=== PATIENT | female | born 1975 | race Two or more races ===

== ENCOUNTER 2018-06-23 06:37 | Day surgery (SDC) | payer OTHER ==
[2018-06-23] MEDS ORDERED: NS 1,000 ML IV ONE (06:53)
[2018-06-23] MEDS ORDERED: ONDANSETRON 4 MG/2 ML VIAL IVP ONE (07:18)
--- NOTE | 2018-06-23 07:24 | EDPHY ---
HPI/HX/ROS/PE/MDM Narrative: CHIEF COMPLAINT: Abdominal pain HISTORY OF PRESENT ILLNESS: The patient is a 42 y/o female with a history of gastric ulcers complaining of abdominal pain and nausea onset at 03:00, 4 hours ago. In the past she saw a screw machine hand and was diagnosed with a leaky gut. She was also diagnosed with a gastric ulcer which she took medication for. However, the pain today feels different. After eating dinner last night she developed chills and became nauseous. At 03:00, she developed upper abdominal pain and vomited after having a sip of water. There was a small amount of subjective blood present in this vomit. The abdominal pain has since radiated to her entire abdomen and she continues to feel nauseous. In addition to her abdominal pain, she has had orange-colored stool for the past several days. Denies history of abdominal surgeries or kidney stones. No fever, chest pain, shortness of breath, palpitations, diarrhea, urinary complaints, back pain, headache, lightheadedness. REVIEW OF SYSTEMS: Aside from elements discussed in the HPI, a comprehensive 10-point review of systems was reviewed and is negative. PAST MEDICAL HISTORY: Gastric ulcers, leaky gut SOCIAL HISTORY: Lives in [place], family at bedside, not employed VITAL SIGNS: Reviewed by me GENERAL: Appears uncomfortable, well-developed, well-nourished, in no respiratory distress. HEENT: Atraumatic. Eyes: No icterus, no injection. Mouth: moist mucous membranes. No erythema or lesions. Neck: supple with no adenopathy. LUNGS: Clear to auscultation bilaterally, no wheezes, rhonchi or rales. CARDIAC: Regular rate and rhythm, no rubs, murmurs or gallops. ABDOMEN: Generalized abdominal tenderness, soft, nondistended, no guarding or rebound, bowel sounds normal. No focal tenderness. BACK: Left flank discomfort EXTREMITIES: No trauma. No edema. Range of motion is normal throughout. NEURO: Alert and oriented, grossly nonfocal. SKIN: Warm and dry, no rash. PSYCHIATRIC: Normal mentation, no agitation. Portions of this note were transcribed by a medical office receptionist. I personally performed a history, physical exam, medical decision making, and confirmed accuracy of information the transcribed note. ED Course: The patient is a 42 y/o female with a history of gastric ulcers presenting with generalized abdominal pain and nausea onset at 03:00, 4 hours ago. On exam she has left flank discomfort and generalized abdominal tenderness without guarding , rebound or distension. Labs and abdominopelvic CT ordered; 1L IV NS, 50mcg IV Fentanyl, and 4mg IV Zofran. 0750: Patient's labs are normal besides a mildly elevated white count, CT results still pending. 0839: Spoke with Dr. Barraza, patient has an enlarged appendix indicative of acute appendicitis. 0840: Consulted with Dr. Velasco, general surgeon, who will evaluate the patient Emergency Department. 0845: Reassessed patient and discussed laboratory and imaging findings. She is comfortable with plan for admission for an appendectomy. 1gm IV Ceftriaxone, 500mg IV Flagyl, and 1mg IV Dilaudid administered prior to being transferred to the floor. Seen by Dr. Velasco in the emergency department. Taken to the operating room with plans for discharge later today from PACU. MDM: After obtaining the patient's history and performing an examination, differential diagnosis considered included but was not limited to appendicitis, cholecystitis, gastritis, pancreatitis, kidney stones, urinary tract infections and other causes. - Data Points Imaging Results: Imaging Impressions Abdomen CT 06/23/18 07:44 Impression: Acute appendicitis with appendicolith and a small amount of free fluid in the right lower quadrant of the pelvis. Findings and recommendations discussed with Emergency Department physician, Shanika Perez MD at 0840 hours, 06/23/2018. Final report concurs with initial preliminary interpretation. A test result has been communicated to a licensed care provider and documented in the [facility] Critical Result system on 06/23/2018 8:41, Message ID [id number]. Imaging: Discussed imaging studies w/ body recall instructor Radiologist, I viewed and interpreted images myself Laboratory Results: Laboratory Results 06/23/18 07:15 06/23/18 07:15 06/23/18 06/23/18 06/23/18 07:15 07:15 07:15 WBC 13.94 10^3/uL H 10^3/uL (3.80-9.50) RBC 4.42 10^6/uL 10^6/uL (4.18-5.33) Hgb 13.5 g/dL g/dL (12.6-16.3) Hct 40.1 % % (38.0-47.0) MCV 90.7 fL fL (81.5-99.8) MCH 30.5 pg pg (27.9-34.1) MCHC 33.7 g/dL g/dL (32.4-36.7) RDW 12.7 % % (11.5-15.2) Plt Count 301 10^3/uL 10^3/uL (150-400) MPV 9.7 fL fL (8.7-11.7) Neut % (Auto) 90.6 % H % (39.3-74.2) Lymph % (Auto) 5.4 % L % (15.0-45.0) Ida % (Auto) 3.2 % L % (4.5-13.0) Eos % (Auto) 0.1 % L % (0.6-7.6) Baso % (Auto) 0.3 % % (0.3-1.7) Nucleat RBC Rel Count 0.0 % % (0.0-0.2) Absolute Neuts (auto) 12.64 10^3/uL H 10^3/uL (1.70-6.50) Absolute Lymphs (auto) 0.75 10^3/uL L 10^3/uL (1.00-3.00) Absolute Monos (auto) 0.44 10^3/uL 10^3/uL (0.30-0.80) Absolute Eos (auto) 0.02 10^3/uL L 10^3/uL (0.03-0.40) Absolute Basos (auto) 0.04 10^3/uL 10^3/uL (0.02-0.10) Absolute Nucleated RBC 0.00 10^3/uL 10^3/uL (0-0.01) Immature Gran % 0.4 % % (0.0-1.1) Immature Gran # 0.05 10^3/uL 10^3/uL (0.00-0.10) Sodium 142 mEq/L mEq/L (135-145) Potassium 3.8 mEq/L mEq/L (3.3-5.0) Chloride 105 mEq/L mEq/L (97-110) Carbon Dioxide 26 mEq/l mEq/l (22-31) Anion Gap 11 mEq/L mEq/L (8-16) BUN 20 mg/dL mg/dL (7-23) Creatinine 0.7 mg/dL mg/dL (0.6-1.0) Estimated GFR > 60 Glucose 119 mg/dL H mg/dL (70-100) Calcium 9.0 mg/dL mg/dL (8.5-10.4) Total Bilirubin 0.6 mg/dL mg/dL (0.1-1.4) Conjugated Bilirubin 0.2 mg/dL mg/dL (0.0-0.5) Unconjugated Bilirubin 0.4 mg/dL mg/dL (0.0-1.1) AST 23 IU/L IU/L (14-46) ALT 24 IU/L IU/L (9-52) Alkaline Phosphatase 75 IU/L IU/L (38-126) Total Protein 7.0 g/dL g/dL (6.3-8.2) Albumin 4.0 g/dL g/dL (3.5-5.0) Lipase 85 IU/L IU/L (23-300) Beta HCG, Qual NEGATIVE Urine Color Urine Appearance Urine pH Ur Specific [place] Urine Protein Urine Ketones Urine Blood Urine Nitrate Urine Bilirubin Urine Urobilinogen Ur Leukocyte Esterase Urine RBC Urine WBC Ur Epithelial Cells Urine Mucus Urine Glucose 06/23/18 06:55 WBC RBC Hgb Hct MCV MCH MCHC RDW Plt Count MPV Neut % (Auto) Lymph % (Auto) Ida % (Auto) Eos % (Auto) Baso % (Auto) Nucleat RBC Rel Count Absolute Neuts (auto) Absolute Lymphs (auto) Absolute Monos (auto) Absolute Eos (auto) Absolute Basos (auto) Absolute Nucleated RBC Immature Gran % Immature Gran # Sodium Potassium Chloride Carbon Dioxide Anion Gap BUN Creatinine Estimated GFR Glucose Calcium Total Bilirubin Conjugated Bilirubin Unconjugated Bilirubin AST ALT Alkaline Phosphatase Total Protein Albumin Lipase Beta HCG, Qual Urine Color YELLOW Urine Appearance CLEAR Urine pH 6.0 (5.0-7.5) Ur Specific [place] 1.024 (1.002-1.030) Urine Protein NEGATIVE (NEGATIVE) Urine Ketones TRACE H (NEGATIVE) Urine Blood 2+ H (NEGATIVE) Urine Nitrate NEGATIVE (NEGATIVE) Urine Bilirubin NEGATIVE (NEGATIVE) Urine Urobilinogen NEGATIVE EU EU (0.2-1.0) Ur Leukocyte Esterase NEGATIVE (NEGATIVE) Urine RBC 1-3 /hpf /hpf (0-3) Urine WBC 1-3 /hpf /hpf (0-3) Ur Epithelial Cells TRACE /lpf /lpf (NONE-1+) Urine Mucus 1+ /lpf /lpf (NONE-1+) Urine Glucose NEGATIVE (NEGATIVE) Medications Given: Discontinued Medications Hydrocodone Bitart/Acetaminophen ([place] 5/325) 1 - 2 tab PO Q4HRS PRN PRN Reason: PACU, Pain Moderate Stop: 06/23/18 12:29 Last Admin: 06/23/18 13:24 Dose: 1 tab Bupivacaine HCl (Sensorcaine 0.5% Vial) Confirm Administered Dose 30 ml .ROUTE .STK-MED ONE Stop: 06/23/18 10:28 Last Admin: 06/23/18 11:20 Dose: 20 ml Bupivacaine HCl (Sensorcaine 0.5% Vial) Confirm Administered Dose 30 ml .ROUTE .STK-MED ONE Stop: 06/23/18 10:52 Last Admin: 06/23/18 11:52 Dose: Not Given Fentanyl (Sublimaze) 50 mcg IVP EDNOW ONE Stop: 06/23/18 07:39 Last Admin: 06/23/18 07:55 Dose: 50 mcg Hydromorphone HCl (Dilaudid) 1 mg IVP EDNOW ONE Stop: 06/23/18 09:01 Last Admin: 06/23/18 09:24 Dose: 1 mg Sodium Chloride (Ns) 1,000 mls @ 0 mls/hr IV EDNOW ONE; Wide Open PRN Reason: Protocol Stop: 06/23/18 06:54 Last Admin: 06/23/18 07:22 Dose: 1,000 mls Ceftriaxone Sodium/Dextrose (Rocephin 1 Gm (Premix)) 50 mls @ 100 mls/hr IV EDNOW ONE PRN Reason: Protocol Stop: 06/23/18 09:29 Last Admin: 06/23/18 09:26 Dose: 50 mls Metronidazole/Sodium Chloride (Flagyl 500 Mg (Premix)) 100 mls @ 100 mls/hr IV EDNOW ONE PRN Reason: Protocol Stop: 06/23/18 09:59 Last Admin: 06/23/18 10:23 Dose: 100 mls Lactated Ringer's (Lr) 1,000 mls @ 0 mls/hr IV ONCE ONE PRN Reason: As Directed Stop: 06/23/18 10:25 Last Admin: 06/23/18 10:38 Dose: 1,000 mls Midazolam HCl (Versed) 2 mg IVP ONCALL ONE Stop: 06/23/18 10:49 Last Admin: 06/23/18 11:08 Dose: 2 mg Ondansetron HCl (Zofran) 4 mg IVP EDNOW ONE Stop: 06/23/18 07:19 Last Admin: 06/23/18 07:22 Dose: 4 mg General Time Seen by Provider: 06/23/18 07:23 Initial Vital Signs: Initial Vital Signs Temperature (C) 36.6 C 06/23/18 06:41 Heart Rate 80 06/23/18 06:41 Respiratory Rate 16 06/23/18 06:41 Blood Pressure 103/64 06/23/18 06:41 O2 Sat (%) 97 06/23/18 06:41 O2 Delivery Mode Room Air Allergies/Adverse Reactions: No Known Allergies Allergy (Verified 06/23/18 06:43) Home Medications: Medication Instructions Recorded Cholecalciferol Vit D3 [Vitamin D3 1,000 units PO DAILY 06/23/18 (*)] Herbals/Supplements -Info Only 1 ea PO DAILY 06/23/18 Hydrocodone/APAP 5/325 [[place] 1 each PO Q4H PRN #10 tab 06/23/18 5/325 (*)] Ibuprofen [Motrin (*)] 600 mg PO Q8 PRN #20 tab 06/23/18 Multivitamins [Multivitamin (*)] 1 each PO DAILY 06/23/18 Departure - Departure Disposition: To OP Cath/Surgery Clinical Impression: Acute appendicitis Qualifiers: Acute appendicitis type: unspecified acute appendicitis type Qualified Code(s) : K35.80 - Unspecified acute appendicitis Abdominal pain Qualifiers: Abdominal location: left lower quadrant Qualified Code(s): R10.32 - Left lower quadrant pain Condition: Good Report Scribed for: Shanika Perez Report Scribed by: Kenia William Date of Report: 06/23/18 Time of Report: 07:23
[2018-06-23 07:29] LABS: PLATELET COUNT 301 10^3/uL (150-400)
[2018-06-23] MEDS ORDERED: fentaNYL 100 MCG/2 ML INJ IVP ONE (07:38)
[2018-06-23] MEDS ORDERED: IOPAMIDOL (ISOVUE-300) 100 ML BTL ONE (07:51)
[2018-06-23] MEDS ORDERED: HYDROmorphONE/DILAUDID 2 MG/ML INJ IVP ONE (09:00)
--- NOTE | 2018-06-23 09:23 | GHP ---
[f rep st] HISTORY AND PHYSICAL DATE OF ADMISSION: 06/23/2018 CHIEF COMPLAINT: Acute appendicitis. HISTORY OF PRESENT ILLNESS: The patient is a 42-year-old woman who woke up at 3 a.m. with an acute o nset of abdominal pain. She did have a large meal last night. The abdominal pain has become worse a nd localized to the right lower quadrant, and she presented to the emergency room. Her white count w as elevated. Her CT scan showed acute appendicitis. PAST MEDICAL HISTORY: None. PAST SURGICAL HISTORY: None. SOCIAL HISTORY: Nonsmoker. FAMILY HISTORY: Noncontributory. ALLERGIES: No known drug allergies. MEDICATIONS: None. REVIEW OF SYSTEMS: She had fevers, subjective fevers and chills. Otherwise, a 10-point review of sy stems was negative. PHYSICAL EXAMINATION: VITALS: Reviewed. GENERAL: Pleasant, well-nourished, and well-groomed woman . Sitting up in bed. HEENT: Normocephalic. No gross hearing deficits. Mucous membranes are moist . Pupils are equal and round. No scleral icterus. LUNGS: Clear to auscultation bilaterally. No i ncreased work of breathing. CARDIAC: Regular rate. No peripheral edema. ABDOMEN: Bowel sounds pr esent. Soft. Tender in the right lower quadrant. Negative Rovsing sign. MUSCULOSKELETAL: Normal nails. NEUROLOGIC: Grossly intact. SKIN: Warm and dry. IMPRESSION AND PLAN: The patient is a 42-year-old with acute appendicitis. I personally reviewed he r CT scan and agree with the findings of acute appendicitis, and her white blood cell count is elevat ed. We will take her to the operating room for a laparoscopic appendectomy. The risks and benefits including, but not limited to stroke, heart attack, , blood clots, infection, bleeding, and kelsea ge to the surrounding structures were discussed. She had her questions answered to her satisfaction and signed the informed consent. /[id number]/MODL
[2018-06-23] MEDS ORDERED: LR 1,000 ML IV ONE (10:24)
[2018-06-23] MEDS ORDERED: BUPIVACAINE 0.5% 30 ML SDV ONE ×2 (10:27→10:51)
[2018-06-23] MEDS ORDERED: MIDAZOLAM 2 MG/2 ML VIAL IVP ONE (10:48)
--- NOTE | 2018-06-23 10:49 | PDANEPAE ---
ANE History of Present Illness acute appendicitis for lap appy ANE Past Medical History - Cardiovascular History Hx Hypertension: No Hx Arrhythmias: No Hx Chest Pain: No Hx Coronary Artery / Peripheral Vascular Disease: No Hx CHF / Valvular Disease: No Hx Palpitations: No - Pulmonary History Hx COPD: No Hx Asthma/Reactive Airway Disease: No Hx Recent Upper Respiratory Infection: No Hx Oxygen in Use at Home: No Hx Sleep Apnea: No - Endocrine History Hx Diabetes: No Hypothyroid: No Hyperthyroid: No Obesity: no ANE Review of Systems Review of systems is: negative Review of Systems: - Exercise capacity Exercise capacity: >=4 METS ANE Patient History - Allergies Allergies/Adverse Reactions: No Known Allergies Allergy (Verified 06/23/18 06:43) - Home Medications Home medications: home medication list seen and reviewed Home Medications: Cholecalciferol Vit D3 [Vitamin D3 (*)] 1,000 units PO DAILY 06/23/18 [Last Taken 06/22/18 09:00] Herbals/Supplements -Info Only 1 ea PO DAILY 06/23/18 [Last Taken 06/22/18] Multivitamins [Multivitamin (*)] 1 each PO DAILY 06/23/18 [Last Taken 06/22/18 09:00] - NPO status NPO Since - Liquids (Date): 06/22/18 NPO Since - Liquids (Time): 21:00 NPO Since - Solids (Date): 06/22/18 NPO Since - Solids (Time): 21:00 - Anes Hx Anes Hx: no prior problems - Smoking Hx Smoking Status: Never smoked ANE Labs/Vital Signs - Labs Result Diagrams: 06/23/18 07:15 06/23/18 07:15 - Vital Signs Blood Pressure: 98/66 Heart Rate: 67 Respiratory Rate: 16 O2 Sat (%): 95 Height: 157.48 cm Weight: 64.864 kg ANE Physical Exam - Airway Neck exam: FROM Mallampati Score: Class 1 Mouth exam: normal dental/mouth exam - Pulmonary Pulmonary: no respiratory distress - Cardiovascular Cardiovascular: regular rate and rhythym - ASA Status ASA Status: I ANE Anesthesia Plan Anesthesia Plan: general endotracheal anesthesia
--- NOTE | 2018-06-23 10:50 | POSTANESTH ---
Post Anesthetic Evaluation Cardiovascular Status: Normal, Stable Respiratory Status: Normal, Stable Level of Consciousness/Mental Status: Can Participate in Eval Pain Control: Adequate, Prn Tx Ordered Nausea/Vomiting Control: Adequate, Prn Tx Ordered Complications Possibly Related to Anesthesia: None Noted
[2018-06-23] MEDS ORDERED: fentaNYL 100 MCG/2 ML INJ ONE (10:54)
[2018-06-23] MEDS ORDERED: PROPOFOL 200 MG/20 ML VIAL ONE (10:54)
[2018-06-23] MEDS ORDERED: ROCURONIUM 50 MG/5 ML VIAL ONE (10:55)
[2018-06-23] MEDS ORDERED: SUGAMMADEX SODIUM 200 MG/2 ML VIAL IVP ONE (10:56)
[2018-06-23] MEDS ORDERED: KETOROLAC 30 MG/1 ML SDV ONE (10:56)
[2018-06-23] MEDS ORDERED: LIDOCAINE 2% 2 ML INJ ONE ×2 (10:56)
[2018-06-23] MEDS ORDERED: DEXAMETHASONE 4 MG/ML VIAL ONE (10:56)
[2018-06-23] MEDS ORDERED: ONDANSETRON 4 MG/2 ML VIAL ONE (10:56)
--- NOTE | 2018-06-23 11:11 | POSTOPPROG ---
Post Op Note Date of Operation: 06/23/18 Surgeon: Stacia Velasco Anesthesiologist: arash Anesthesia: GET(General Endotracheal) Pre-op Diagnosis: acute appendicitis Post-op Diagnosis: same Indication: 42 year old with acute appendicitis Procedure: lap appy Findings: inflamed appendix Inf/Abcess present in the surg proc area at time of surgery?: No Specimen(s): appendix
[2018-06-23] MEDS ORDERED: ONDANSETRON 4 MG/2 ML VIAL IVP PRN (11:28)
[2018-06-23] MEDS ORDERED: NALOXONE HCL 0.4 MG/ML INJ IVP PRN (11:28)
[2018-06-23] MEDS ORDERED: fentaNYL 100 MCG/2 ML INJ IVP PRN (11:28)
[2018-06-23] MEDS ORDERED: oxyCODONE IR 5 MG TAB PO PRN (11:28)
[2018-06-23] MEDS ORDERED: HYDROmorphONE/DILAUDID 1 MG/ML INJ IVP PRN (11:28)
[2018-06-23] MEDS ORDERED: ALBUTEROL 3 ML DEYVIAL IH PRN (11:28)
[2018-06-23] MEDS ORDERED: HYDROCODONE/APAP 5/325 TAB PO PRN (11:28)
[2018-06-23] MEDS ORDERED: ACETAMINOPHEN 500 MG TAB PO PRN (11:28)
[2018-06-23] MEDS ORDERED: LR 500 ML IV PRN (11:28)
--- NOTE | 2018-06-23 11:59 | GOP ---
[f rep st] OPERATIVE REPORT DATE OF OPERATION: 06/23/2018 SURGEON: Stacia Velasco MD ANESTHESIA: General. ANESTHESIOLOGIST: Stefano Staples MD. PREOPERATIVE DIAGNOSIS: Acute appendicitis. POSTOPERATIVE DIAGNOSIS: Acute appendicitis. PROCEDURE PERFORMED: Laparoscopic appendectomy. FINDINGS: Inflamed appendix. SPECIMENS: Appendix. ESTIMATED BLOOD LOSS: 5 cc. INDICATIONS: The patient is a 42-year-old woman who had abdominal pain and was diagnosed with append icitis. DESCRIPTION OF PROCEDURE: Patient was brought into the operating room, placed supine on the table, a nd general anesthesia was administered. Her abdomen was prepped and draped in the usual sterile [facility] ion. I infiltrated all sites with 0.5% Marcaine prior to making incisions. I elevated her umbilicus. I made an incision. I inserted the Veress needle, passed the hanging drop test. Her abdomen insufflated easily to a pressure of 15 mmHg. I placed a 5 mm trocar with a camer a at this site. There were no injuries from Veress needle placement. Under direct vision, I placed a 5 mm suprapubic trocar and a 10 mm trocar in the left lower quadrant. I elevated her appendix. I divided the mesoappendix with the Harmonic Scalpel. I divided the base o f the appendix with an Endo-MANUEL 45 white load. Hemostasis was achieved at the staple line. The port s were removed under direct vision. Abdomen allowed to desufflate. No other abnormalities in her ab domen were noted. The appendix placed in EndoCatch bag, retrieved via the 10 mm trocar. The trocars were removed under direct vision. The abdomen allowed to desufflate. The fascia at the 10 mm trocar site was closed with 0 Vicryl. Skin closed with 4-0 Monocryl. Dermab ond applied. She was awakened in the operating room, extubated, transferred to PACU in [facility]. /[id number]/MODL
[2018-06-23] MEDS ORDERED: HYDROCODONE/APAP 5/325 TAB ONE (13:22)
[2018-06-23 14:24] VITALS: BP 98/60
== END 2018-06-23 14:30 | disposition home or self-care (01) ==
LOC: UNDOADMOB 08:52 → FSGY 10:00 → UNDODISOB 14:30
PROVIDERS: ATTEND Anesthesiology Pain Medicine
PROC: 0DTJ4ZZ Resection of Appendix, Percutaneous Endoscopic Approach (ICD-10-PCS; principal; 2018-06-23 11:00)
DX: K35.80 Unspecified acute appendicitis (principal); E86.9 Volume depletion, unspecified
CPT/HCPCS: 96374; J0696; J1100; J1170; J1885; J2250; J2405; J2704; J3010; Q9967